=== PATIENT | male | born 2005 | race Caucasian/White ===

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

== ENCOUNTER 2023-01-30 13:19 | Emergency (ER) | payer OTHER ==
[~2023-01-30] VITALS: Ht 177.8 cm; Wt 55.0 kg
[2023-01-30 15:44] LABS: MONO SCRN POSITIVE (NEGATIVE)
[2023-01-30 16:08] VITALS: BP 103/59; TEMP 100.3; O2SAT 97
== END 2023-01-30 16:15 | disposition home or self-care (01) ==
LOC: M ED 13:19
DX: B27.90 Infectious mononucleosis, unspecified without complication (principal)